=== PATIENT | female | born 1945 | race Caucasian/White ===

== ENCOUNTER 2018-06-05 09:46 | Outpatient (CLI) | payer MEDICARE ==
[~2018-06-05 09:46] MED LIST: Iopamidol 370 76% 100 ML VIAL ONE
--- NOTE | 2018-06-05 13:55 | CT ---
CT ABDOMEN AND PELVIS WITH AND WITHOUT IV CONTRAST: Date: 06/05/18 HISTORY: Abdominal pain and distention. FINDINGS: Lung bases are clear. There is incomplete rotation of the left kidney. Retroaortic left renal vein. T he liver, spleen, right kidney, adrenal glands, and pancreas are unremarkable. No enlarged lymph node s or free fluid. Small amount of calcification throughout the arterial structures. No evidence of bowel obstruction or inflammation. The right colon and cecum extend across the left an terior midline lower abdomen. On the precontrast images, there is suggestion of circumferential wall thickening of the lower right colon. The later contrast enhanced images show no persistent abnormality, suggesting that it is an ar ea of peristalsis. Small amount of abdominal fat protrudes into an umbilical hernia. IMPRESSION: No significant abnormalities are demonstrated. POS: CARMINE
== END 2018-06-05 09:47 | disposition home or self-care (01) ==
LOC: SCSCT 09:46
PROVIDERS: ATTEND Internal Medicine Gastroenterology
DX: R10.30 Lower abdominal pain, unspecified (principal); R14.0 Abdominal distension (gaseous); R10.13 Epigastric pain; K21.9 Gastro-esophageal reflux disease without esophagitis; Z85.3 Personal history of malignant neoplasm of breast
CPT/HCPCS: 74178; 82565

== ENCOUNTER 2019-09-20 06:49 | Outpatient (CLI) | payer MEDICARE ==
[2019-09-20 11:15] LABS: Hemoglobin 12.5 g/dL (12.0-16.0); Mean Corpuscular HGB CONC 33.4 g/dL (32.0-36.0); Mean Corpuscular Hemoglobin 33.1 pg (27.0-31.0); Mean Corpuscular Volume 99.2 fL (78.0-98.0); Mean Platelet Volume 8.1 fL (7.4-10.4); Platelet Count 369 thou/uL (130-400); RBC Distribution Width 12.4 % (11.5-14.5); Red Blood Cell (RBC) Count 3.78 mill/uL (4.20-5.40)
[2019-09-20 11:34] LABS: Anion Gap 14 mmol/L (10-20); BUN (Urea Nitrogen) 27 mg/dL (9.8-20.1); Calc. Creatinine Clearance 0 mL/min (70-130); Calcium 10.9 mg/dL (7.8-10.44); Carbon Dioxide 25 mmol/L (23-31); Chloride 107 mmol/L (98-107); Estimated GFR-MDRD 50; Glucose 81 mg/dL (83-110); Sodium 141 mmol/L (136-145)
[2019-09-20 11:45] LABS: PTT 25.8 SEC (22.9-36.1)
--- NOTE | 2019-09-20 16:30 | EKG ---
Test Reason : PREOP Blood Pressure : / mmHG Vent. Rate : 086 BPM Atrial Rate : 086 BPM P-R Int : 134 ms QRS Dur : 072 ms QT Int : 350 ms P-R-T Axes : 050 -15 007 degrees QTc Int : 418 ms Normal sinus rhythm Minimal voltage criteria for LVH, may be normal variant Inferior infarct , age undetermined Cannot rule out Anterior infarct , age undetermined Abnormal ECG No previous ECGs available Confirmed by DR. Margo MATT ([id number]) on 09/20/2019 4:30:09 PM Referred By: MILAD Confirmed By:DR. Margo MATT
== END 2019-09-20 06:50 | disposition home or self-care (01) ==
LOC: LABBT 06:49
PROVIDERS: ATTEND Surgery
DX: Z01.818 Encounter for other preprocedural examination (principal); M48.061 Spinal stenosis, lumbar region without neurogenic claudication; M54.16 Radiculopathy, lumbar region
CPT/HCPCS: 80048; 85027; 85610; 85730; 93005; 93010

== ENCOUNTER 2019-09-23 07:27 | Day surgery (SDC) | payer MEDICARE ==
[2019-09-20 10:17] VITALS: BMI 31.2
[2019-09-23] MEDS ORDERED: Thrombin 5000 UNITS/5 ML VIAL ONE (08:13)
[2019-09-23] MEDS ORDERED: Fentanyl 100 MCG/2 ML VIAL ONE ×4 (08:55→13:20)
[2019-09-23] MEDS ORDERED: EPHEDRINE 25 MG/5 ML SYRINGE ONE (10:42)
[2019-09-23] MEDS ORDERED: PHENYLEPHRINE-NS 100 MCG/ML 10 ML SYRINGE ONE (10:42)
[2019-09-23] MEDS ORDERED: PROPOFOL 200 MG/20 ML VIAL ONE (10:42)
[2019-09-23] MEDS ORDERED: Lidocaine 1% PF 5 ML VIAL ONE (10:42)
[2019-09-23] MEDS ORDERED: Dexamethasone 20 MG/5 ML VIAL ONE (10:42)
[2019-09-23] MEDS ORDERED: Ondansetron PF 4 MG/2 ML Vial ONE (10:42)
[2019-09-23] MEDS ORDERED: Rocuronium Bromide 10 MG/ML (10ML VIAL) ONE (10:42)
[2019-09-23] MEDS ORDERED: Glycopyrrolate 0.2 MG/ML 5 ML SYRINGE ONE (10:42)
[2019-09-23] MEDS ORDERED: tiZANidine HCl 4 MG TAB PO PRN (11:46)
[2019-09-23] MEDS ORDERED: Morphine 2 MG/ML SYRINGE SLOW IVP PRN (11:46)
[2019-09-23] MEDS ORDERED: Ondansetron PF 4 MG/2 ML Vial IVP PRN (11:46)
[2019-09-23] MEDS ORDERED: traMADol HCl 50 MG TAB PO PRN (11:46)
[2019-09-23] MEDS ORDERED: Milk Of Magnesia 30 ML UDCUP PO PRN (11:46)
[2019-09-23] MEDS ORDERED: Bisacodyl 10 MG SUPP PR PRN (11:46)
[2019-09-23] MEDS ORDERED: Acetaminophen/Codeine 30-300mg Tablet PO PRN (11:46)
[2019-09-23] MEDS ORDERED: Fleet Enema 133 ML BOT PR PRN (11:46)
[2019-09-23] MEDS ORDERED: Mag-Al 1200 mg/1200 mg/30 ML UDCUP PO PRN (11:46)
[2019-09-23] MEDS ORDERED: Acetaminophen 325 MG TAB PO PRN (11:46)
[2019-09-23] MEDS ORDERED: Promethazine HCl 25 MG/ML VIAL IM PRN (11:52)
[2019-09-23] MEDS ORDERED: Promethazine HCl 25 MG/ML VIAL SLOW IVP PRN (11:52)
[2019-09-23] MEDS ORDERED: Ondansetron HCl/PF 4 MG/2 ML Vial IVP PRN (11:52)
--- NOTE | 2019-09-23 14:13 | OP ---
DATE OF PROCEDURE: 09/23/2019 OR: 11. PAINTER AIRBRUSH: Kenia Argueta PA-C. PREPROCEDURE DIAGNOSIS: Low back and leg pain with lumbar stenosis. POSTPROCEDURE DIAGNOSIS: Low back and leg pain with lumbar stenosis. PROCEDURES PERFORMED: 1. Right L2-L3 hemilaminotomy and foraminotomy. 2. L3-L4, L4-L5 laminectomies, partial facetectomies, and foraminotomies. DESCRIPTION OF PROCEDURE: After informed consent was obtained from the patient, the patient was brought to the OR. Proper patient, pause, and identification were carried out. She was placed under excellent general endotracheal anesthesia and positioned prone on the OR table. All appropriate points were padded. I identified the L2, L3, L4, L5 dorsal spines and lamina. A linear collette was made over this region. This area was sterilely cleansed, prepared, and draped. Proper patient, pause, and identification were carried out. The wound was then opened with combination of sharp, monopolar, and blunt dissection. We exposed the L2-L3, L3-L4, L4-L5 lamina, and localization film confirmed our area of interest. I then performed a right L2-L3 hemilaminotomy and foraminotomy with excellent decompression of the traversing right L3 nerve root and then L3-L4, L4-L5 laminectomies, partial facetectomies, and foraminotomies. At the bottom of the L5 segment, there was bone and ligament that was quite adherent to the dura and there was a small amount of weepage of the CSF leak with a partial thickness hole in the dura. This was sealed with DuraSeal and Gelfoam with no further leak. Copious irrigation occurred throughout as did maximizing the hemostasis. The wound was closed in anatomic layers. We were pleased with the decompression. Job ID: [id number]
[2019-09-23] MEDS: CEFAZOLIN 2 GM in Premix Bag 1 BAG IVPB SCH ×2 (16:12→23:52)
[2019-09-23] MEDS: Sodium Chloride 0.9% 1,000 ML IV SCH (16:23)
[2019-09-23] MEDS: Gabapentin 300 MG CAP PO SCH (20:42)
[2019-09-23] MEDS: HYDROcodone/Acetaminophen 7.5/325 mg Tablet PO PRN (23:57)
[2019-09-24] MEDS: Sodium Chloride 0.9% 1,000 ML IV SCH (06:30)
[2019-09-24] MEDS: Gabapentin 300 MG CAP PO SCH (07:57)
[2019-09-24 08:03] VITALS: BP 108/68; TEMP 99.6
[2019-09-24] MEDS ORDERED: DULoxetine 60 MG CAP PO SCH (09:00)
[2019-09-24] MEDS ORDERED: Fenofibrate 48 MG TAB PO SCH (09:00)
[2019-09-24] MEDS ORDERED: Stress 600 With Zinc 1 TAB PO SCH (09:00)
[2019-09-24] MEDS ORDERED: Letrozole 2.5 MG TAB PO SCH (09:00)
[2019-09-24] MEDS ORDERED: LEVOTHYROXINE SODIUM PO SCH (09:00)
--- NOTE | 2019-09-24 11:21 | PRG ---
DATE OF SERVICE: 09/24/2019 Ms. Noguera is doing well postoperative day one following lumbar decompression. We went over interim postoperative issues, very pleased with how she is doing. She is mobilizing and has met criteria for dismissal. Job ID: [id number]
[2019-09-24] MEDS: HYDROcodone/Acetaminophen 7.5/325 mg Tablet PO PRN (11:54)
== END 2019-09-24 13:09 | disposition home or self-care (01) ==
LOC: SDC 07:27 → SJJU 11:49 → SDC 09-24 13:09
PROVIDERS: ATTEND Surgery
PROC: 01NB0ZZ Release Lumbar Nerve, Open Approach (ICD-10-PCS; principal; 2019-09-23)
PROC: 01NB0ZZ Release Lumbar Nerve, Open Approach (ICD-10-PCS; 2019-09-23)
DX: M48.061 Spinal stenosis, lumbar region without neurogenic claudication (principal); M51.16 Intervertebral disc disorders with radiculopathy, lumbar region
CPT/HCPCS: 76000; J0690; J1100; J2001; J2405; J2704; J3010; J3370; J3490